=== PATIENT | male | born 1975 | race Hispanic/Latino ===

== ENCOUNTER 2020-09-09 10:00 | Inpatient (IN) | payer OTHER ==
[~2020-09-09] VITALS: Ht 160 cm; Wt 84.0 kg
--- NOTE | 2020-09-09 10:00 | NUR ---
AMBULATED TO ROOM INDEP IN STABLE CONDITION
--- NOTE | 2020-09-09 10:10 | NUR ---
STAFF PRESENT FOR VIETNAMESE/VIETNAMESE
[2020-09-09 10:33] LABS: GFR > 60 ML/MIN (>=60 (CALC)); GFR FOR AFR.AMER. > 60 ML/MIN (>=60 (CALC))
[2020-09-09 10:35] LABS: HEMATOCRIT 39.4 % (39.0-50.0); HEMOGLOBIN 13.1 g/dl (14.0-18.0); IMMATURE GRANULOCYTES 0.8 % (0.0-5.0); MEAN CELL VOLUME 86.6 fL CALC (80.0-100.0); MEAN CORPUSCULAR HGB 28.8 pG CALC (26.0-32.0); MEAN CORPUSCULAR HGB CONC 33.2 g/dL CAL (32.0-36.0); NEUT# 14.27 thou/uL (1.82-7.42); RED BLOOD COUNT 4.55 mill/uL (4.70-6.10); RED CELL DISTRI WIDTH 13.3 % (11.5-15.5)
[2020-09-09 10:59] LABS: ALBUMIN 3.8 g/dL (3.2-5.0); ALKALINE PHOSPHATASE 96 u/l (38-126); ANION GAP 13 (6-22 (CALC)); BILIRUBIN, TOTAL 0.9 mg/dL (0.0-1.4); BUN 9 mg/dL (9-20); BUN/CREATININE RATIO 10 (12-20 (CALC)); CARBON DIOXIDE 25 mmol/l (22-30); CHLORIDE 100 mmol/l (95-108); CREATININE 0.9 mg/dL (0.7-1.3); GFR > 60 ML/MIN (>=60 (CALC)); GFR FOR AFR.AMER. > 60 ML/MIN (>=60 (CALC)); POTASSIUM 3.8 mmol/l (3.5-5.1); SGOT/AST 73 u/l (17-59); SODIUM 134 mmol/l (137-146); TOTAL PROTEIN 8.1 g/dL (6.3-8.2)
[2020-09-09 11:14] LABS: C-REACTIVE PROTEIN 19.7 mg/dL (0-0.9)
--- NOTE | 2020-09-09 12:51 | NUR ---
CALL TO FLOOR FOR REPORT
--- NOTE | 2020-09-09 13:07 | NUR ---
RECIEVED REPORT FROM ER.
--- NOTE | 2020-09-09 13:08 | NUR ---
REPORT CALLED TO LPN. LISA PT TO BE TRANSPORTED TO MED SURG WITH TELE.
[2020-09-09 13:24] VITALS: BP 143/77
--- NOTE | 2020-09-09 13:24 | NUR ---
PT ARRIVED TO [facility] ROOM 289 VIA STRETCHER ACCOMPAINED BY ER STAFF. PT AMBULATED TO BED WITH STEADY GAIT. PT IS A/O X3 AND ROMANSH SPEAKING ONLY. CHRISTOFER SCOTT AT BEDSIDE TO ASSIST WITH TRANSLATION. ASSESSMENT AND VITALS COMPLETED. BP 143/77, HR 88, O2 92% ON ROOM AIR. RESPIRATIONS ARE SHALLOW. LUNG SOUNDS ARE DIMINISHED. 2L NC APPLIED. HEART RHYTHM NORMAL, SR PER ER MONITORING. BOWEL SOUNDS ARE ACTIVE, LAST REPORTED BM 09/09/20. RADIAL AND PEDAL PULSES ARE STRONG. #20G IN RAC FLUSHED, IVF STARTED PER ORDER. SITE REMAINS HEALTHY AND PATENT. SKIN INTACT. RIGHT ANKLE MONITOR NOTED. PT STATES HE WAS ARRESTED FOR DRIVING WHEN HE WAS NOT SUPPOSE TO AND IMMIGRATION PUT IT ON. PT INFORMED EQUAL OPPORTUNITY OFFICER THAT WE DID NOT NEED TO NOTIFY ANYONE. PT PRESENT WITH $774 IN [place], PT REQUEST TO KEEP MONEY INSTEAD OF SENDING TO SAFE. CHRISTOFER SCOTT AT BEDSIDE TO WITNESS. PT DENIES OF ANY PAINS AT THIS TIME. NKDA NOTED, ALLERGY BAND APPLIED. PT ORIENTED TO ROOM AND CALL LIGHT SYSTEM. ALL SAFETY PRECAUTIONS ARE IN PLACE WITH AIR/CONTACT PRECAUTIONS. WILL CONTINUE TO MONITOR.
--- NOTE | 2020-09-09 13:28 | NUR ---
PT TRANSPORTED WITH RN ON TELE TO MED SURG IN STABLE CONDITION
--- NOTE | 2020-09-09 14:25 | NUR ---
KEMI, METALIZER FIELD OPERATION NOTIFIED OF PT HAVING ANKLE MONITOR. TICKET MAKER INFORMED TO CALL UP HEALTH SYSTEM OFFICE AND NOTIFY.
--- NOTE | 2020-09-09 14:37 | NUR ---
[facility] CALLED AND ASKED IF [facility] WAS TO BE NOTIFIED. CUSTOMER SOLUTIONS REPRESENTATIVE INFORMED THAT NAME WOULD BE TAKEN AND PROBABTION OFFICE WOULD BE NOTIFIED.
--- NOTE | 2020-09-09 16:21 | NUR ---
PT SLEEPING IN SEMI FOWLERS POSITION. RESPIRATIONS ARE EVEN AND UNLAORED WITH NO DISTRESS NOTED. #20G IN RAC INFUSING WITH IVF PER ORDER, SITE REMAINS HEALTHY AND PATENT. TELE MONITORING IN PLACE. NO SIGNS OF ANY PAINS OR DISCOMFORTS AT THIS TIME. ALL SAFETY PRECAUTIONS ARE IN PLACE WITH CALL LIGHT IN REACH. WILL CONTINUE TO MONITOR.
[2020-09-09 17:44] VITALS: BP 122/69
[2020-09-09 19:00] VITALS: BP 126/69
--- NOTE | 2020-09-09 20:30 | NUR ---
PATIENT RESTING IN BED-AWAKE ALERT AND ORIENTEDX3 WATCHING TV. PATIENT IS MOSTLY ARABIC SPEAKING. O2 VIA NASAL CANNULA IN PLACE AT 2LPM. TELE MONITOR IN PLACE-LAST READING WAS [id number]. PATIENT WITH NO COMPLAINTS AT THIS TIME. IVF NS PATENT AND INFUSING VIA RAC AT 75CC/HR. SITE IS HEALTHY AT THIS TIME. NO COMPLAINTS AT THIS TIME. STATES LAST BM WAS TODAY AND DENIES ANY DIFFICULTY WITH URINATION. LUNGS ARE CLEAR. NO PERIPERAL EDEMA NOTED. ANKLE MONITOR INTACT TO RIGHT ANKLE. CALL LIGHT IN REACH. WILL CONT TO MONITOR.
[2020-09-09 23:30] VITALS: BP 118/70
--- NOTE | 2020-09-10 02:40 | NUR ---
PATIENT FOUND RESTING IN BED WITH O2 OFF-O2 SAT AT 88%. O2 REAPPLIED AT 2LPM VIA NASAL CANNULA AND RESPODED WELL WITH O2 SAT OF 94%. TELE MONITOR IN PLACE. IVF PATENT AND INFUSING VIA RAC SITE AT 75CC/HR. PATIENT IS ON ISOLATION FOR COVID. SAFETY PRECAUTIONS REINFORCED. CALL LIGHT IN REACH. WILL CONT TO MONITOR.
[2020-09-10 04:00] VITALS: BP 117/73
[2020-09-10 04:36] LABS: HEMATOCRIT 35.4 % (39.0-50.0); HEMOGLOBIN 11.7 g/dl (14.0-18.0); IMMATURE GRANULOCYTES 0.7 % (0.0-5.0); MEAN CELL VOLUME 87.2 fL CALC (80.0-100.0); MEAN CORPUSCULAR HGB 28.8 pG CALC (26.0-32.0); MEAN CORPUSCULAR HGB CONC 33.1 g/dL CAL (32.0-36.0); NEUT# 6.74 thou/uL (1.82-7.42); RED BLOOD COUNT 4.06 mill/uL (4.70-6.10); RED CELL DISTRI WIDTH 13.7 % (11.5-15.5)
[2020-09-10 04:57] LABS: ALKALINE PHOSPHATASE 90 u/l (38-126); ANION GAP 11 (6-22 (CALC)); BILIRUBIN, TOTAL 0.7 mg/dL (0.0-1.4); BUN 12 mg/dL (9-20); BUN/CREATININE RATIO 16 (12-20 (CALC)); CARBON DIOXIDE 23 mmol/l (22-30); CHLORIDE 106 mmol/l (95-108); CREATININE 0.8 mg/dL (0.7-1.3); GFR > 60 ML/MIN (>=60 (CALC)); GFR FOR AFR.AMER. > 60 ML/MIN (>=60 (CALC)); POTASSIUM 4.3 mmol/l (3.5-5.1); SGOT/AST 73 u/l (17-59); SODIUM 135 mmol/l (137-146)
[2020-09-10 04:58] LABS: TOTAL PROTEIN 6.3 g/dL (6.3-8.2)
[2020-09-10 05:13] LABS: C-REACTIVE PROTEIN 19.3 mg/dL (0-0.9)
--- NOTE | 2020-09-10 05:36 | NUR ---
PATIENT RESTING IN BED AT THIS TIME WITH EYES CLOSED. RESPS ARE EVEN AND UNLABORED. O2 VIA NASAL CANNULA IN PLACE. LAST O2 SAT WAS 96%. IVF PATENT AND INFUSING VIA RAC SITE AT 75CC/HR. SITE REMAINS HEALTHY AT THIS TIME, ANKLE MONITOR REMAINS IN PLACE TO RIGHT ANKLE. CALL LIGHT IN REACH. WILL CONT TO MONITOR.
[2020-09-10 07:59] VITALS: BP 119/69
--- NOTE | 2020-09-10 07:59 | NUR ---
PT RESTING IN SEMI FOLWERS POSITION WITH O2 OFF. ASSESSMENT AND VITALS COMPLETED. PT IS A/O X3 AND AZERI SPEAKING ONLY. ANTHONY FROM REGISTRATION TO ASSIST WITH TRANSLATION OVER THE PHONE. BP 119/69, HR 73, O2 86% ON ROOM AIR. 92% ON 4L NC. REPISRATIONS ARE EVEN AND UNLABRED WITH NO DISTRESS NOTED. LUNG SONDS ARE DIMINISHED.PT INSTRUCTED TO LEAVE O2 ON.NONPRODUCTIVE COUGH NOTED. BOWEL SOUNDS ARE ACTIVE. HEART RHYTHM NORMAL WITH TELE IN PLACE. RADIAL AND PEDAL PULSES STRONG. #20G IN RAC INFUSING WITH OIVF PER ORDER, SITE REMAINS HEALTHY AND PATENT. SKIN INTACT.RIGHT ANKLE MONITOR NOTED. PT EDUCTAED ON NEED FOR PRONING AND GETTING IN CHAIR. PT STATES HE FEELS REALLY WEAK WHEN HE GETS UP. PT DENIES OF ANY PAINS. PT INSTRUCTED TO CALL WHEN NEEDING ASSISTANCE WHILE AMBULATING. PT VERBLAIZED UNDERSTANDING. PT DENIES OF ANY NEEDS AT THIS TIME. ALL SAFETY PRECAUTIONS ARE IN PLACE WITH CALL LIGHT IN REACH. AIR/CONTACT PRECAUTIONS ARE IN PLACE. WILL CONTINUE TO MONITOR.
--- NOTE | 2020-09-10 09:20 | NUR ---
PT SITTIN UP IN CHAIR. RESPIRATIONS ARE EVEN AND UNLABORED. O2 95% ON 4L NC.
--- NOTE | 2020-09-10 10:50 | NUR ---
DR HARRISON AT BEDSIDE
[2020-09-10 11:04] VITALS: BP 112/74
--- NOTE | 2020-09-10 11:50 | NUR ---
PT ASSITED INTO SHOWER. IV COVERED. TELE MONITORING REMOVED, ER NOTIFIED. PT DENIES NEEDED BAG FOR ANKLE BRACLET. PT INSTRUCTED TO CALL IF NEEDING FOR ASSISTANCE.
--- NOTE | 2020-09-10 12:42 | NUR ---
PT BACK IN RECYLINER FROM SHOWER. REPSIRATIONS ARE EVEN AND UNLABORED ON 4L NC. HUMIDIFICATION ADDED DUE TO PT REPORTING DRY NOSE. ROBITUSSIN ADMINISTERED PER PT REQUEST. TELE MONITORING REAPPLIED. #20G IN RAC INFUSING WITH IVF PER ORDER, SITE REMAINS HEALTHY AND PATENT. JUICE AND WATER PORVIDED TO PT. PT DENIES OF ANY OTHER NEEDS. ALL SAFTEY PRECAUTIONS ARE IN PLACE. ENCOURAGED TO CALL FOR ASSISTANCE. WILL CONTINUE TO MONITOR.
[2020-09-10 15:03] VITALS: BP 118/81
--- NOTE | 2020-09-10 15:16 | NUR ---
O2 DECREASED TO 2L NC. O2 SAT 94%. RESPIRATIONS ARE EVEN AND UNLABORED WITH NO DISTRESS NOTED.
--- NOTE | 2020-09-10 15:46 | NUR ---
PT SITTING UP ON GLOBAL CHIEF CREATIVE OFFICER. RESPIRATIONS ARE EVEN AND UNLABORED WITH NO DISTRESS NOTED, 2L NC. #20G RAC INFUSING WITH IVF PER ORDER, SITE APPEARS HEALTHY AND PATENT. TELE MONITORING IN PLACE. PT DENIES OF ANY PAINS OR DISCOMFORTS AT THIS TIME. ALL SAFETY PRECAUTIONS ARE IN PLACE WITH CALL LIGHT IN REACH. AIR/CONTACT PRECAUTIONS ARE IN PLACE. WILL CONTINUE TO MONITOR.
--- NOTE | 2020-09-10 19:00 | NUR ---
REPORT RECEIVED FROM Kenny SMITH LPN, CARE OF PT ASSUMED AT THIS TIME.
[2020-09-10 19:35] VITALS: BP 122/79
--- NOTE | 2020-09-10 20:15 | NUR ---
PT SITTING UP IN CHAIR, PHYSICAL ASSESMENT COMPLETE. RESPIRATIONS REGULAR AND UNLABORED, WEARING 02 @ 2L/MIN VIA NC. LUNGS CLEAR AND DIMINISHED. REPORTS NON-PRODUCTIVE COUGH THAT IS IMPROVING. APPLE JUICE PROVIDED PER PT'S REQUEST. PT DENIES FURTHER NEEDS AT THIS TIME. CALL DOBBINS WITHIN REACH, AGREES TO CALL PRN.
--- NOTE | 2020-09-10 21:00 | NUR ---
SCHEDULED MEDICATIONS ADMINISTERED, PRN ROBITUSSIN ADMINISTERED FOR COUGH. SEE E-MAR.
--- NOTE | 2020-09-11 00:30 | NUR ---
PT APPAERS TO BE SLEEPING COMFORTABLY, LAYING IN BED WITH EYES CLOSED, RESPIRATIONS REGUALR AND UNLABORED, NO APPARENT DISTRESS. CALL DOBBINS REMAINS WITHIN REACH.
--- NOTE | 2020-09-11 04:34 | NUR ---
Donal ROY POLITICAL ORGANIZER IN ROOM TO COLLECT AM LABS.
[2020-09-11 05:00] VITALS: BP 118/74
[2020-09-11 05:33] LABS: HEMATOCRIT 38.3 % (39.0-50.0); HEMOGLOBIN 12.7 g/dl (14.0-18.0); IMMATURE GRANULOCYTES 1.1 % (0.0-5.0); MEAN CELL VOLUME 87.2 fL CALC (80.0-100.0); MEAN CORPUSCULAR HGB 28.9 pG CALC (26.0-32.0); MEAN CORPUSCULAR HGB CONC 33.2 g/dL CAL (32.0-36.0); NEUT# 5.09 thou/uL (1.82-7.42); RED BLOOD COUNT 4.39 mill/uL (4.70-6.10); RED CELL DISTRI WIDTH 13.6 % (11.5-15.5)
[2020-09-11 05:46] LABS: ALKALINE PHOSPHATASE 114 u/l (38-126); ANION GAP 14 (6-22 (CALC)); BILIRUBIN, TOTAL 0.6 mg/dL (0.0-1.4); BUN 13 mg/dL (9-20); BUN/CREATININE RATIO 20 (12-20 (CALC)); CARBON DIOXIDE 22 mmol/l (22-30); CHLORIDE 104 mmol/l (95-108); CREATININE 0.6 mg/dL (0.7-1.3); GFR > 60 ML/MIN (>=60 (CALC)); GFR FOR AFR.AMER. > 60 ML/MIN (>=60 (CALC)); POTASSIUM 4.3 mmol/l (3.5-5.1); SGOT/AST 69 u/l (17-59); SODIUM 136 mmol/l (137-146); TOTAL PROTEIN 6.4 g/dL (6.3-8.2)
--- NOTE | 2020-09-11 07:00 | NUR ---
PT REPORT RECEIVED FROM NIGHT NURSEBEL.
[2020-09-11 08:00] VITALS: BP 118/74
--- NOTE | 2020-09-11 08:00 | NUR ---
PT WAS FOUND RESTING IN BED IN SEMI-FOWLERS POSITION;PT IS A&OX3;VS AND ASSESSMENT WERE COMPLETED;PT HAS NO REPORTS OF PAIN AT THIS TIME;HEART SOUNDS ARE REGULAR IN RATE AND RHYTHM;TELE IS IN PLACE;LUNG SOUNDS ARE DIMINISHED IN ALL LOBES;RESPIRATIONS ARE EVEN AND UNLABORED ON O2@2L VIA NC;#20G IV IN RAC IS RUNNING NS@25 ML/HR;IV SITE IS FREE OF COMPLICATIONS AT THIS TIME;SAFETY PRECAUTIONS IN PLACE;PT IS CURRENTLY IN A NEG PRESSURE ROOM DUE TO COVID-19 DX WITH AIR/CONTACT PRECAUTIONS;CALL LIGHT WITHIN REACH;BED IN LOWEST POSITION;WILL CONTINUE TO MONITOR.
[2020-09-11 11:48] VITALS: BP 144/84
--- NOTE | 2020-09-11 12:00 | NUR ---
PT WAS FOUND RESTING IN BEDSIDE CHAIR EATING LUNCH;PT IS REPORTING NO NEEDS OR CONCERNS AT THIS TIME;TELE IS IN PLACE;O2@2L VIA NC IS IN PLACE;SAFETY PRECAUTIONS IN PLACE;CALL LIGHT WITHIN REACH;BED IN LOWEST POSITION;WILL CONTINUE TO MONITOR.
--- NOTE | 2020-09-11 16:00 | NUR ---
PT WAS FOUND RESTING IN BED;PT EXPRESSES NO NEEDS OR CONCERNS AT THIS TIME;TELE IS PLACE;O2@2L VIA NC IS IN PLACE;#20G IV IN RAC IS RUNNING NS@25 ML/HR;IV SITE APPEARS FREE OF COMPLICATIONS AT THIS TIME;SAFETY PRECAUTIONS IN PLACE;CALL LIGHT WITHIN REACH;BED IN LOWEST POSITION;WILL CONTINUE TO MONITOR.
[2020-09-11 16:18] VITALS: BP 120/71
[2020-09-11 19:00] VITALS: BP 126/70
--- NOTE | 2020-09-11 21:00 | NUR ---
PATIENT RESTING IN BED AT THIS TIME-AWAKE ALERT AND ORIENTED WITH NO COMPLAINTS AT THIS TIME. TELE MONITOR IN PLACE WITH LAST [id number]. IVF NS PATENT AND INFUSING VIA RAC AT 25CC/HR.SITE IS HEALTHY AT THIS TIME. PATIENT ON ISOLATION FOR COVID. ANKLE MONITOR TO RIGHT ANKLE IN PLACE. NO COMPLAINTS AT THIS TIME. CALL LIGHT IN REACH. WILL CONT TO MONITOR.
[2020-09-12] VITALS: BP 115/77
--- NOTE | 2020-09-12 | NUR ---
PATIENT RESTING IN BED WITH O2 OFF-O2 SAT IS 92%. STATES THAT HE DOESN'T WANT TO WEAR IT. RESP ARE EVEN AND UNLABORED AT THIS TIME. TELE MONITOR IN PLACE. IVF NS PATENT AND INFUSING VIA RAC AT 25CC/HR. SITE REMAINS HEALTHY. CALL LIGHT IN REACH. WILL CONT TO MONITOR.
[2020-09-12 04:00] VITALS: BP 115/73
--- NOTE | 2020-09-12 04:43 | NUR ---
PATIENT RESTING IN BED-O2 SAT IS 93% ON ROOM. PATIENT STATES THAT HE DOESN'T WANT TO WEAR THE O2 AT THIS TIME. RESPS ARE EVEN AND UNLABORED. TELE MONITOR IN PLACE-LAST READING SB-45. IVF NS PATENT AND INFUSING AT 25CC/HR. CALL LIGHT IN REACH. WILL CONT TO MONITOR.
[2020-09-12 05:39] LABS: HEMATOCRIT 38.1 % (39.0-50.0); HEMOGLOBIN 12.5 g/dl (14.0-18.0); IMMATURE GRANULOCYTES 1.7 % (0.0-5.0); MEAN CELL VOLUME 86.6 fL CALC (80.0-100.0); MEAN CORPUSCULAR HGB 28.4 pG CALC (26.0-32.0); MEAN CORPUSCULAR HGB CONC 32.8 g/dL CAL (32.0-36.0); NEUT# 7.94 thou/uL (1.82-7.42); RED BLOOD COUNT 4.4 mill/uL (4.70-6.10); RED CELL DISTRI WIDTH 13.2 % (11.5-15.5)
[2020-09-12 06:02] LABS: ALBUMIN 3.1 g/dL (3.2-5.0); ALKALINE PHOSPHATASE 103 u/l (38-126); BILIRUBIN, TOTAL 0.6 mg/dL (0.0-1.4); BUN 15 mg/dL (9-20); BUN/CREATININE RATIO 21 (12-20 (CALC)); C-REACTIVE PROTEIN 5.2 mg/dL (0-0.9); CARBON DIOXIDE 22 mmol/l (22-30); CHLORIDE 105 mmol/l (95-108); CREATININE 0.7 mg/dL (0.7-1.3); GFR > 60 ML/MIN (>=60 (CALC)); GFR FOR AFR.AMER. > 60 ML/MIN (>=60 (CALC)); SODIUM 136 mmol/l (137-146); TOTAL PROTEIN 6.6 g/dL (6.3-8.2)
[2020-09-12 06:14] LABS: ANION GAP 14 (6-22 (CALC)); POTASSIUM 4.6 mmol/l (3.5-5.1); SGOT/AST 127 u/l (17-59)
--- NOTE | 2020-09-12 07:00 | NUR ---
PT REPORT RECEIVED FROM NIGHT NURSEKARL.
--- NOTE | 2020-09-12 08:00 | NUR ---
PT WAS FOUND RESTING IN BEDSIDE CHAIR WITH HIS O2 NOT IN PLACE;PT IS A&OX;VS AND ASSESSMENT WERE COMPLETED;PT IS REPORTING NO PAIN AT THIS TIME;HEART SOUNDS ARE REGULAR IN RATE AND RHYTHM;LUNG SOUNDS ARE DIMINISHED IN ALL LOBES;RESPIRATIONS ARE EVEN AND UNLABORED ON RA;PT IS REFUSING TO WEAR HIS O2 AT THIS TIME;O2 SATS ARE HOLDING BETWEEN 92 AND 93% AT THIS TIME ON RA;PT IS REPORTING A NON-PRODUCTIVE COUGH WELL;#20G IN RAC IS RUNNING NS@25 ML/HR;IV SITE APPEARS FREE OF COMPLICATIONS AT THIS TIME;PT HAS AN ANKLE BRACELET IN PLACE WELL;SAFETY PRECAUTIONS IN PLACE;CALL LIGHT WITHIN REACH;BED IN LOWEST POSITION;WILL CONTINUE TO MONITOR.
[2020-09-12 08:16] VITALS: BP 127/78
[2020-09-12 10:37] VITALS: BP 121/68
--- NOTE | 2020-09-12 10:50 | NUR ---
AND FELISHA ANSARI AT BEDSIDE DISCUSSING POC WITH PT
[2020-09-12 14:25] VITALS: BP 121/78
--- NOTE | 2020-09-12 16:00 | NUR ---
PT WAS FOUND RESTING IN BEDSIDE CHAIR;PT IS REPORTING NO PAIN AT THIS TIME;PT REMAINS WITHOUT HIS OXYGEN IN PLACE;O2 SATS ARE REMAINING @93%;#20G IV IN RAC IS RUNNING NS@25 ML/HR;REMDESIVIR IS INFUSING AT THIS TIME;IV SITE APPEARS FREE OF COMPLICATIONS;SAFETY PRECAUTIONS IN PLACE;CALL LIGHT WITHIN REACH;BED IN LOWEST POSITION;WILL CONTINUE TO MONITOR.
[2020-09-12] MEDS ORDERED: ASPIRIN REGULA325 M1 PO (16:52)
[2020-09-12] MEDS ORDERED: ZITHROMAX250 MG PO (16:52)
[2020-09-12] MEDS ORDERED: DEXAMETHASON6 MG PO (16:52)
[2020-09-12 19:00] VITALS: BP 133/82
--- NOTE | 2020-09-12 19:00 | NUR ---
REPORT RECEIVED FROM Peyton JOHNSON RN, CARE OF PT ASSUMED AT THIS TIME.
--- NOTE | 2020-09-12 19:45 | NUR ---
PT SITTING UP IN CHAIR, WATCHING TV. PHYSICAL ASSESMENT COMPLETE. RESPIRATIONS REGULAR AND UNLABORED. SPO2 92% ON ROOM AIR. NO COUGH. LUNGS CLEAR AND DIMINISHED. R-AC 20G SALINE LOCKED AND COVERED FOR SHOWER. SITE PATENT AND FLUSHES EASILY. TELE REMOVED FOR SHOWER, PEDIATRIC NEUROLOGIST NOTIFIED. PT DENIES FURTHER NEEDS WHEN ASKED. PLAN OF CARE REVIEWED, VERBALIZES UNDERSTANDING. CALL DOBBINS WITHIN REACH, AGREES TO CALL PRN.
--- NOTE | 2020-09-12 20:42 | NUR ---
PT EXPRESSES HE DOES NOT WANT TELEMETRY RE-APPLIED. STATES HE IS LEAVING TOMORROW AND "DOESN'T NEED IT". Consuelo STEELE APRN MADE AWARE OF PT'S COMPLAINT. ORDER TO D/C TELEMETRY RECEIVED.
--- NOTE | 2020-09-13 00:45 | NUR ---
PT APPEARS TO BE SLEEPING COMFORTABLY, LAYING IN BED WITH EYES CLOSED, RESPIRATIONS REGUALR AND UNLABORED, NO APPARENT DISTRESS. CALL DOBBINS REMAINS WITHIN REACH.
[2020-09-13 04:00] VITALS: BP 114/74
--- NOTE | 2020-09-13 05:03 | NUR ---
Ole LANCE FIELD SALES REPRESENTATIVE AT BEDSIDE TO COLLECT AM LABS.
[2020-09-13 05:40] LABS: HEMATOCRIT 41.7 % (39.0-50.0); HEMOGLOBIN 13.7 g/dl (14.0-18.0); IMMATURE GRANULOCYTES 4.9 % (0.0-5.0); MEAN CELL VOLUME 86.3 fL CALC (80.0-100.0); MEAN CORPUSCULAR HGB 28.4 pG CALC (26.0-32.0); MEAN CORPUSCULAR HGB CONC 32.9 g/dL CAL (32.0-36.0); NEUT# 6.28 thou/uL (1.82-7.42); RED BLOOD COUNT 4.83 mill/uL (4.70-6.10); RED CELL DISTRI WIDTH 13.2 % (11.5-15.5)
[2020-09-13 06:01] LABS: ALBUMIN 3.3 g/dL (3.2-5.0); ALKALINE PHOSPHATASE 102 u/l (38-126); ANION GAP 14 (6-22 (CALC)); BILIRUBIN, TOTAL 0.4 mg/dL (0.0-1.4); BUN 16 mg/dL (9-20); BUN/CREATININE RATIO 20 (12-20 (CALC)); CARBON DIOXIDE 26 mmol/l (22-30); CHLORIDE 102 mmol/l (95-108); CREATININE 0.8 mg/dL (0.7-1.3); GFR > 60 ML/MIN (>=60 (CALC)); GFR FOR AFR.AMER. > 60 ML/MIN (>=60 (CALC)); POTASSIUM 4.6 mmol/l (3.5-5.1); SGOT/AST 89 u/l (17-59); SODIUM 137 mmol/l (137-146); TOTAL PROTEIN 6.7 g/dL (6.3-8.2)
--- NOTE | 2020-09-13 07:00 | NUR ---
RECIEVE REPORT FROM [facility]
[2020-09-13 07:37] VITALS: BP 121/78
--- NOTE | 2020-09-13 07:44 | NUR ---
PT RESTING IN SEMI FOWLERS POSITION. PT IS A/O X3 AND SCOTTISH SPEAKING MOSTLY. ASSESSMENT AND VITALS COMPLETED. BP 121/78, HR 50, O2 93% ON ROOM AIR. RESPIRATIONS ARE EVEN AND UNLABORED WITH NO DISTRESS NOTED. LUNG SOUNDS DIMINISHED. HEART RHYTHM NORMAL. BOWEL SOUNDS ARE ACTIVE. RADIAL AND PEDAL PULSES STRONG. #20G IN RAC REMAINS INFUSING WITH IVF PER ORDER, SITE REMAINS HEALTHY AND PATENT. RIGH ANKLE MONITOR NOTED. PT DENIES OF ANY NEEDS AT THIS TIME BUT EXPRESSES HIS WANT TO GO HOME. ALL SAFETY PRECAUTIONS ARE IN PLACE WITH CALL LIGHT IN REACH. AIR/CONTACT PRECAUTIONS ARE IN PLACE. WILL CONTINUE TO MONITOR.
--- NOTE | 2020-09-13 09:20 | NUR ---
ACOSTA,ANPR AT BEDSIDE
--- NOTE | 2020-09-13 11:31 | NUR ---
PT RESTING IN SEMI FOWLERS POSITION. RESPIRATIONS ARE EVEN AND UNLABORED ON ROOM AIR. #20G IN RAC INFUSING WITH IVF PER ORDER, SITE APPEARS HEALTHY AND PATENT. PT NOTFIED OF DC AFTER REMDESIVIR ADMINISTRATION. PT VERBALIZED UNDERSTANDING. ALL SAFETY AND ISOLATION PRECAUTIONS ARE IN PLACE WITH CALL LIGHT IN REACH. WILL CONTINUE TO MONITOR.
--- NOTE | 2020-09-13 11:35 | NUR ---
SPOKE WITH YARA FROM [employer] (INTENSIVE SUPER[employer]ION [employer]) RELATED TO ANKLE MONITORING. CALLER INFORMED BY PT THAT HE WOULD BE DISCHARGED TODAY AND WANTED TO CONFIRM. NAME AND PRESENTED. HEAVY EQUIPMENT ENGINE MECHANIC INFORMED CALLER THAT PT WAS TO BE DC TODAY AFTER LAST ADMINISTRATION OF ANTIBIOTIC.
--- NOTE | 2020-09-13 12:23 | NUR ---
DR HARRISON AT BEDSIDE
--- NOTE | 2020-09-13 14:14 | NUR ---
REMDESIVIR INFUSING WITH EASE. #20G RAC REAINS HEALTHY AND PATENT. PT DENIES OF ANY NEEDS AT THIS TIME. ALL SAFETY PRECAUTIONS ARE IN PLACE WITH CALL LIGHT IN REACH. WILL CONTINUE TO MONTITOR
[2020-09-13 14:15] VITALS: BP 118/68
--- NOTE | 2020-09-13 15:14 | NUR ---
D/C INSTRUCTIONS GIVEN TO PT IN [place] VIA PHONE CALL WITH Rafat SMITH LPN AT BEDSIDE. PT INSTRUCTED TO FILL PRESCRIPTIONS AND IMPORTANCE OF THEIR USE, ESPECIALLY THAT OF ASPIRIN. PT ENCOURAGED TO BUY A PULSE OXIMETER TO MONITOR O2 WITH GOAL BEING >90%. PT ENCOURAGED TO RETURN TO THE ED FOR WORSENING SYMPTOMS OR INCREASED SOB. PT ALSO INSTRUCTED TO REMAIN IN QUARENTINE FOR A TOTAL OF 14 DAYS AFTER THE ONSET OF SYMPTOMS. PT VERBALIZED UNDERSTANDING.
--- NOTE | 2020-09-13 15:21 | NUR ---
PT EDUCATED ON DC INSTRUCTIONS AND NEW MEDICATIONS WITH ASSISTANCE FROM [facility] FOR TRANSLATION. PT VERBALIZED UNDERSTANDING WITH NO QUESTIONS. BEV CALLED FOR PT.
--- NOTE | 2020-09-13 15:26 | NUR ---
Discharge instructions given. Patient verbalizes understanding of same. Discharged in stable condition via Wheelchair to Home with staff. All belongings sent with pt. PT DC HOME VIA WHEELCHAIR ACCOMPAINED BY CHRISTOFER MOORE. TRANSPORTED HOME VIA [facility] WITH ALL DC INSTRUCTIONS AND BELONGINGS.
== END 2020-09-13 15:26 | disposition home or self-care (01) | DRG 177 ==
LOC: ED 10:00 → ED-I 11:45 → ED 11:58 → MS2 11:59
PROVIDERS: Family Medicine; Nurse Practitioner; ADMIT Internal Medicine; ATTEND Internal Medicine
PROC: XW033E5 Introduction of Remdesivir Anti-infective into Peripheral Vein, Percutaneous Approach, New Technology Group 5 (ICD-10-PCS; principal; 2020-09-09)
DX: U07.1 COVID-19 (principal); J12.82 Pneumonia due to coronavirus disease 2019; J96.01 Acute respiratory failure with hypoxia
CPT/HCPCS: J1650; Q9967